=== PATIENT | female | born 1965 | race Two or more races ===

== ENCOUNTER 2024-06-11 15:07 | Emergency (ER) | payer MEDICAID, OTHER ==
[~2024-06-11] VITALS: Ht 162.6 cm; Wt 72.6 kg
[2024-06-11 15:14] VITALS: TEMP 98.2
[2024-06-11] MEDS ORDERED: IBUPROFEN 600 MG TABLET ONE (15:57)
[2024-06-11] MEDS: IBUPROFEN 600 MG TABLET PO ONE (15:59)
[2024-06-11] MEDS ORDERED: ACET-2605 PO (17:01)
[2024-06-11] MEDS ORDERED: NAPR-1164 PO (17:01)
[2024-06-11 17:14] VITALS: BP 128/78; O2SAT 100
== END 2024-06-11 17:15 | disposition home or self-care (01) ==
LOC: ER 15:10
DX: R51.9 Headache, unspecified (principal); M25.522 Pain in left elbow; M25.562 Pain in left knee; M25.572 Pain in left ankle and joints of left foot; I10 Essential (primary) hypertension; W01.190A Fall on same level from slipping, tripping and stumbling with subsequent striking against furniture, initial encounter; Y93.89 Activity, other specified; Y92.513 Shop (commercial) as the place of occurrence of the external cause; Y99.8 Other external cause status
CPT/HCPCS: 73080-TC; 73552; 73564-TC; 73610-TC